=== PATIENT | male | born 1960 | race Caucasian/White ===

== ENCOUNTER 2021-02-15 14:17 | Emergency (ER) | payer MEDICARE ==
[2021-02-15] MEDS ORDERED: METO50TA7 PO (15:33)
[2021-02-15] MEDS ORDERED: insulin pump (15:33)
[2021-02-15] MEDS ORDERED: CELL500T PO (15:33)
[2021-02-15] MEDS ORDERED: NEXI40CA PO (15:33)
[2021-02-15] MEDS ORDERED: LIPI80TA PO (15:33)
[2021-02-15] MEDS ORDERED: PROG1CAP11 PO (15:33)
[2021-02-15] MEDS ORDERED: BACT800T5 PO (15:33)
[2021-02-15] MEDS ORDERED: MEDR4PAK PO (15:33)
[2021-02-15] MEDS ORDERED: PLAV1TAB2 PO (15:33)
[2021-02-15] MEDS ORDERED: NITR0.4S14 SL (15:33)
--- NOTE | 2021-02-15 16:44 | REP ---
INDICATION: DYSPNEA/COUGH COMPARISON: None. TECHNIQUE: PA and lateral. FINDINGS: Cardiomegaly. Lung adame demonstrate chronic appearing changes. Superimposed acute process including mild pulmonary vascular congestion and left basilar atelectasis cannot be excluded. No effusion. No pneumothorax. Skeletal structures demonstrate old healed left rib fractures. IMPRESSION: Cardiomegaly. Chronic appearing changes. Cannot exclude pulmonary vascular congestion or left basilar atelectasis. <Electronically signed by Phong Mcclendon > 02/15/21 1640
[2021-02-15 16:51] LABS: BASO % 0.3 % (0.0-1.0); EOS # 0.1 10^3/uL (0.0-0.5); EOS % 0.5 % (0.0-3.0); HEMATOCRIT 34.7 % (42.0-52.0); HEMOGLOBIN 11.4 g/dl (13.5-17.5); LYMPH # 0.5 10^3/uL (1.5-5.0); MEAN CORPUSCULAR HEMOGLOBIN 28.9 pg (27.0-33.0); MEAN CORPUSCULAR HGB CONC 32.9 g/dl (32.0-36.5); MEAN CORPUSCULAR VOLUME 87.8 fl (80.0-96.0); MONO # 0.5 10^3/uL (0.0-0.8); MONO % 5.5 % (2.0-8.0); NEUTROPHILS # 8.6 10^3/uL (1.5-8.5); NEUTROPHILS % 88.3 % (36.0-66.0); PLATELET COUNT, AUTOMATED 150 10^3/uL (150-450); RED BLOOD COUNT 3.95 10^6/uL (4.30-6.10); WHITE BLOOD COUNT 9.7 10^3/uL (4.0-10.0)
[2021-02-15 17:25] LABS: ALBUMIN 2.5 GM/DL (3.2-5.2); BILIRUBIN,DIRECT 0.3 MG/DL (0.0-0.2); BILIRUBIN,TOTAL 1.1 MG/DL (0.2-1.0); CALCIUM LEVEL 6.5 MG/DL (8.8-10.2); CK-MB VALUE MASS 1.9 NG/ML (<3.6); CREATININE FOR GFR 1.42 MG/DL (0.70-1.30); GLOMERULAR FILTRATION RATE 53.6 (>49); MB/CK RELATIVE INDEX 2.29 (< OR =4); POTASSIUM SERUM 3.8 MEQ/L (3.5-5.1); THYROID STIMULATING HORMONE 0.265 uIU/ML (0.358-3.740); TOTAL PROTEIN 4.9 GM/DL (6.4-8.2); TROPONIN I 0.07 NG/ML (< 0.10)
[2021-02-15 18:12] VITALS: BP 153/74
--- NOTE | 2021-02-16 18:49 | ECGEPIP ---
[facility] - ED Test Date: 2021-02-15 Pat Name: KRYSTA CRUZ Department: Room: - Gender: Male [employer] Legal Assistant: OLGA : 1960 Requested By: JEFFREY Betts Order Number: [id number] Reading MD: Cynthia Grijalva Measurements Intervals [place] Rate: 62 P: IA: 148 QRS: 213 QRSD: 84 T: 141 QT: 416 QTc: 422 Interpretive Statements Normal sinus rhythm Right superior axis deviation Septal infarct , age undetermined Electronically Signed on 02-16-2021 18:48:52 EDT by Cynthia Grijalva
== END 2021-02-15 18:14 | disposition home or self-care (01) ==
LOC: M ED 14:17
DX: E86.0 Dehydration (principal); R06.02 Shortness of breath; E10.9 Type 1 diabetes mellitus without complications; I51.7 Cardiomegaly; E78.5 Hyperlipidemia, unspecified; Z87.891 Personal history of nicotine dependence; Z79.4 Long term (current) use of insulin; Z79.899 Other long term (current) drug therapy